=== PATIENT | male | born 1995 | race Caucasian/White ===

== ENCOUNTER 2022-02-19 14:04 | Emergency (ER) | payer OTHER, SELFPAY ==
[2022-02-19 15:25] VITALS: BP 145/83; PULSE 85; RESP 20; TEMP 36.6; O2SAT 98; BMI 33.6
--- NOTE | 2022-02-19 15:29 | DI.RAD.S_ITS ---
PROCEDURE: XR LUMBAR SPINE 2-3V INDICATIONS: injury TECHNIQUE: 3 views of the lumbar spine were acquired. COMPARISON: None. FINDINGS: Bones: 5 [id number] vertebrae are present. There is normal bony alignment. No vertebral body compression fractures. No suspicious bony lesions. There is [id number] focal disc space narrowing seen at L5-S1. The disc heights otherwise appear well-preserved. Soft tissues: Overlying bowel gas pattern is normal. No suspicious soft tissue calcifications. IMPRESSION: Focal L5-S1 disc space narrowing seen. If it would be helpful for clinical management decision making, please consider a dedicated, scheduled lumbar spine MRI for further evaluation (assuming that there is no contraindication). Dictated by: Jesus Cintron M.D. on 02/19/2022 at 15:25 Approved by: Jesus Cintron M.D. on 02/19/2022 at 15:26
--- NOTE | 2022-02-19 19:37 | ED.BACK ---
HPI - Back Pain/Injury <YUNI Newby - Last Filed: 02/19/22 19:54> General Chief Complaint: Back Pain/Injury Stated Complaint: Lower back pain, trouble walking 1 day Time Seen by Provider: 02/19/22 19:32 Source: patient History of Present Illness HPI Narrative: This is a 26-year-old male presents to the emergency department after mild low back pain yesterday, states that he worked out and played basketball and had aggravation of his low back pain by the end of the day, states that when he woke up today he had severe low back pain which radiates to his right buttock, denies weakness, states that walking is painful and he has associated muscle spasm. Denies incontinence, urinary retention, denies recent trauma or fall. He recently moved here, denies any rash, history of similar episodes, has not taken any medication today. Related Data Previous Rx's Medication Instructions Recorded lidocaine 5 % topical patch 1 patch topical Q12HR PRN pain #15 02/19/22 (Lidoderm) ea methocarbamol 750 mg tablet 750 mg PO Q8H PRN muscle 02/19/22 spasm/tightness #20 tabs Allergies Allergy/AdvReac Type Severity Reaction Status Date / Time No Known Drug Allergies Allergy Verified 02/19/22 15:24 Review of Systems <YUNI Newby - Last Filed: 02/19/22 19:54> Review of Systems Narrative: Review of systems is negative for acute abnormalities unless otherwise noted in HPI Patient History <YUNI Newby - Last Filed: 02/19/22 19:54> Social History Smoking Status: Never smoker Smoking Status: Never smoker alcohol intake frequency: 0-2 drinks per day Substance Use Type: does not use Exam <YUNI Newby - Last Filed: 02/19/22 19:54> Narrative Exam Narrative: Reviewed vitals signs and nursing notes. General: cooperative, comfortable, in no acute distress, well groomed, afebrile HEENT: symmetrical facial expressions, moist mucous membranes MSK: moves all extremities, neurovascularly intact, no weakness, normal tone, right leg lift exacerbates low back pain, ambulatory without weakness, without sensation changes bilaterally, nontender over lumbar spine and sacrum, Skin: brisk capillary refill, without pallor or erythema Neuro: normal speech and cognition, A&O x3, ambulatory, clear speech Psych: mental status is grossly normal, congruent mood, normal affect, pleasant and cooperative Initial Vital Signs Initial Vital Signs: Vital Signs Temperature 97.8 F 02/19/22 15:25 Pulse Rate 85 02/19/22 15:25 Respiratory Rate 20 02/19/22 15:25 Blood Pressure 145/83 H 02/19/22 15:25 Pulse Oximetry 98 02/19/22 15:25 Oxygen Delivery Method 02/19/22 15:25 <Kena Muller DO - Last Filed: 02/21/22 12:38> Initial Vital Signs Initial Vital Signs: Vital Signs Temperature 97.8 F 02/19/22 15:25 Pulse Rate 85 02/19/22 15:25 Respiratory Rate 20 02/19/22 15:25 Blood Pressure 145/83 H 02/19/22 15:25 Pulse Oximetry 98 02/19/22 15:25 Oxygen Delivery Method 02/19/22 15:25 Course <YUNI Newby - Last Filed: 02/19/22 19:54> Orders Ordered: Discontinued Medications Hydrocodone Bitart/Acetaminophen (Hydrocodone/Acet 5/325 Tablet) 1 tab PO NOW ONE Stop: 02/19/22 19:37 Last Admin: 02/19/22 19:49 Dose: 1 tab Documented By: MLJacky Ketorolac Tromethamine (Ketorolac 30 Mg/Ml Vial) 30 mg IM NOW ONE Stop: 02/19/22 19:37 Last Admin: 02/19/22 19:48 Dose: 30 mg Documented By: MLJacky Lidocaine (Lidocaine Patch 1 Each Adh..Patch) 1 each TOP NOW ONE Stop: 02/19/22 19:37 Last Admin: 02/19/22 19:48 Dose: 1 each Documented By: MLJacky Methocarbamol (Methocarbamol 500 Mg Tablet) 750 mg PO NOW ONE Stop: 02/19/22 19:37 Last Admin: 02/19/22 19:48 Dose: 750 mg Documented By: MLJacky Vital Signs Vital signs: Vital Signs - 8 hr 02/19/22 15:25 Temperature 97.8 F Pulse Rate 85 Respiratory Rate 20 Blood Pressure 145/83 H Pulse Oximetry 98 Oxygen Delivery Method Room Air <Kena Muller DO - Last Filed: 02/21/22 12:38> Orders Ordered: Discontinued Medications Hydrocodone Bitart/Acetaminophen (Hydrocodone/Acet 5/325 Tablet) 1 tab PO NOW ONE Stop: 02/19/22 19:37 Last Admin: 02/19/22 19:49 Dose: 1 tab Documented By: MANUEL Ketorolac Tromethamine (Ketorolac 30 Mg/Ml Vial) 30 mg IM NOW ONE Stop: 02/19/22 19:37 Last Admin: 02/19/22 19:48 Dose: 30 mg Documented By: MANUEL Lidocaine (Lidocaine Patch 1 Each Adh..Patch) 1 each TOP NOW ONE Stop: 02/19/22 19:37 Last Admin: 02/19/22 19:48 Dose: 1 each Documented By: MANUEL Methocarbamol (Methocarbamol 500 Mg Tablet) 750 mg PO NOW ONE Stop: 02/19/22 19:37 Last Admin: 02/19/22 19:48 Dose: 750 mg Documented By: MANUEL Vital Signs Vital signs: Vital Signs - 8 hr 02/19/22 15:25 Temperature 97.8 F Pulse Rate 85 Respiratory Rate 20 Blood Pressure 145/83 H Pulse Oximetry 98 Oxygen Delivery Method Room Air MDM - Back Pain/Injury <Yasmin Bhatt ASSISTIVE TECHNOLOGY TRAINER - Last Filed: 02/19/22 19:54> Imaging Data lumbar xr: Radiologist's Impression: PROCEDURE:? XR LUMBAR SPINE 2-3V ? INDICATIONS:? injury ? TECHNIQUE:? 3 views of the lumbar spine were acquired.? ? COMPARISON:? None. ? FINDINGS:? ? Bones:? 5 hyg-col-[id number] vertebrae are present.? There is normal bony alignment.? No vertebral body compression fractures.? No suspicious bony lesions.? ? There is [id number] focal disc space narrowing seen at L5-S1. The disc heights otherwise appear well-preserved.? ? Soft tissues:? Overlying bowel gas pattern is normal.? No suspicious soft tissue calcifications.? ? ? IMPRESSION:? Focal L5-S1 disc space narrowing seen. ? If it would be helpful for clinical management decision making, please consider a dedicated, scheduled lumbar spine MRI for further evaluation (assuming that there is no contraindication).? ? ? Dictated by: Jesus Cintron M.D. on 02/19/2022 at 15:25 ? ? Approved by: Jesus Cintron M.D. on 02/19/2022 at 15:26 ? MDM Narrative Medical decision making narrative: This is a 26-year-old male presents to the emergency department with 2 days of worsening low back pain and right sciatica symptoms. X-ray today shows narrowed disc space between L5 and S1, this is patient's 1st experience with sciatica and low back pain. He had not had medications prior to arrival, he does not have weakness, incontinence, right leg lift elicits exacerbating low back pain. He is neurovascularly intact, ambulatory without deficit, nontender over his lumbar spine and sacrum without flank pain, fever, chills or other symptoms. He is without recent trauma, and is afebrile. Suspect likely musculoskeletal etiology, pt is nontoxic appearing with no overt risk factors for epidural hematoma or abscess, caudal equina, and has a nonfocal neuro exam. Spine was non-tender to palpation, pt is ambulatory, without new weakness. Considered nephrolithiasis/pyelonephritis, epidural abscess/hematoma, ligamental injury, paraspinal or other muscular strain, chronic pain, osteoarthritis, disk injury/herniation, degenerative disease, radiculopathy, and critical cord compression. Pt is neurovascularly intact distally, afebrile, without immunosuppression or evidence of infection, peritoneal signs, hypertensive crisis, incontinence, meningeal signs, or abdominal pain with low suspicion for AAA. Without findings concerning for caudal equina, transverse myelitis, spinal vascular malformation, osteomyelitis, degenerative myelopathy, or cord infarction. Encouraged him to follow up with [facility] for a referral to physical therapy, or advanced imaging as needed. Discharge Plan Departure Patient Disposition: Home Clinical Impression: Acute lumbar radiculopathy, Strain of lumbar region Instructions: DI for Back Pain With Sciatica, DI for Back Spasm Activity Restrictions/Additional Instructions: You are evaluated in the emergency department today for back pain, your evaluation suggests no dangerous findings that require further intervention at this time. Although you will still have pain, it should start improving. Move around as tolerated but avoid heavy lifting or significant exertion until your symptoms subside. Bed rest is not recommended nor is it the best treatment for low back pain. Please try ibuprofen 800 mg every 8 hours for pain with food and water, a muscle relaxer, one tab every 8 hours as needed for muscle spasms, caution-this will make you tired, please do not drive or operate a vehicle on these. Please try alternating with heat and ice if helpful, try topical diclofenac gel or lidocaine patches. Follow up with primary care/[facility] for referral to physical therapy and for outpatient therapies as needed. Do not drink alcohol, drive a car, operate machinery, or get up on ladders or heights when taking any prescribed pain medications. Do not drive home if you received prescribed pain medication here in the emergency department. Please follow-up with your primary care provider as needed, return to the emergency department immediately if you have new incontinence or difficulty urinating, inability to control your bowels, groin numbness, new weakness or the inability to walk, fever, or worsening symptoms. I recommend physical therapy and follow-up for any needed treatments. Please follow-up with [facility] for referral to physical therapy or for advanced imaging if needed. Your x-ray today shows disc space narrowing between L5 and S1, this happens with aging the discs start to degrade, especially if you are active. This could be a herniated disc but is more likely inflammation of the nerve root, please follow-up with [facility], ask for referral to physical therapy, it is very helpful for back pain. *What to do: *Please continue to take your regular medications as directed. [ x] [facility] [ ] New medication written as a paper prescription [ ] No new medications given *Please follow up with your primary care provider in 2-3 days, call for an appointment. Let them know you were seen in the Emergency Department and that we asked that you be seen for follow-up. We will electronically transmit a record of today's note if your PCP is in our system *If you do not have a primary care provider please contact [phone] to establish care with one of the [facility] primary care providers. *Return to Emergency Department if you should have any new, worsening, or concerning symptoms, such as [fever greater than 101F, chills, worsening pain, persistent vomiting or other bothersome symptoms]. Prescriptions: New methocarbamol 750 mg tablet 750 mg PO Q8H PRN (Reason: muscle spasm/tightness) Qty: 20 0RF lidocaine [Lidoderm] 5 % adhesive patch,medicated 1 patch topical Q12HR PRN (Reason: pain) Qty: 15 0RF Rx Instructions: leave on most painful area for up to 12 hrs Referrals: Provider,Cira WALLER [Primary Care Provider] - Visit Report Forms: Patient Portal/API <Kena Muller DO - Last Filed: 02/21/22 12:38> Cosign ED Attending Cosignature Attestation: I was immediately available in the department for consultation. Documentation has been reviewed.
[2022-02-19] MEDS: methocarbamoL 500 MG TABLET 750 MG PO (19:48)
[2022-02-19] MEDS: LIDOCAINE PATCH 1 EACH ADH..PATCH TOP (19:48)
[2022-02-19] MEDS: KETOROLAC 30 MG/ML VIAL IM (19:48)
[2022-02-19] MEDS: HYDROCODONE/ACET 5/325 TABLET 1 TAB PO (19:49)
[2022-02-19 19:54] VITALS: BP 158/94; PULSE 84; RESP 18; O2SAT 98
--- NOTE | 2022-02-19 19:55 | PC.NURSE ---
defer to provider assessment. Pt discharged before assessed by RN
== END 2022-02-19 19:56 | disposition home or self-care (01) ==
PROVIDERS: Emergency Provider Nurse Practitioner Critical Care Medicine
DX: S39.012A Strain of muscle, fascia and tendon of lower back, initial encounter (principal); M54.16 Radiculopathy, lumbar region; X58.XXXA Exposure to other specified factors, initial encounter
CPT/HCPCS: 72100; 96372; 99283; J1885